=== PATIENT | male | born 1990 | race Caucasian/White ===

== ENCOUNTER → 2020-02-25 09:26 | Outpatient (CLI) | payer OTHER, SELFPAY ==
[2020-02-25 13:02] LABS: Absolute Lymphocyte Count 0.95 X10^3/uL (0.83-4.51); Absolute Neutrophil Count 2.3 X10^3/uL (2.0-7.7); Basophil# 0.02 X10^3/uL; Basophil% 0.5 % (0-1); Eosinophil# 0.11 X10^3/uL; Hematocrit 48.2 % (40-54); Hemoglobin 15.5 g/dL (13.0-16.5); Lymphocyte # 0.95 X10^3/ul (4.0); Lymphocyte % 26.1 % (19-41); Mean Corp Hgb Conc 32.2 g/dL (32-36); Mean Corpuscular Hgb 29.8 pg (27.0-32.0); Mean Corpuscular Volume 92.5 fL (80-94); Mean Platelet Vol. 10.1 fl (6.2-12.0); Monocyte# 0.28 X10^3/uL; Monocyte% 7.7 % (0-10); NRBC Flagged by Analyzer 0 % (0-5); Neutrophil # 2.27 X10^3/uL (2.7-7.7); Neutrophil % 62.4 % (47-70); Platelet Count 216 K/mm3 (150-450); RBC Distribution Width SD 41.1 fl (35.1-43.9); Red Blood Count 5.21 M/mm3 (4.6-6.2); White Blood Count 3.6 K/mm3 (4.4-11.0)
[2020-02-25 13:25] LABS: ALB/GLOB Ratio 1.2 RATIO (0.9-2.4); AST(SGOT) 17 U/L (15-37); Alanine Aminotransfer ALT/SGPT 33 U/L (16-61); Alkaline Phosphatase 45 U/L (45-117); Anion Gap 5 (5-15); BUN 12 mg/dL (7-18); BUN/Creat Ratio 15.1 RATIO (10-20); Chloride 105 mmol/L (98-107); Cholesterol 182 mg/dL (200); EST Glomerular Filtration Rate 123 mL/min (>60); Est Glom Filt Rate - Afr Amer 149 mL/min (>60); Globulin 3.4 g/dL (2.2-4.2); Glucose 88 mg/dL (74-106); High Density Lipoprotein 74 mg/dL; Potassium 4.2 mmol/L (3.5-5.1); Protein, Total 7.4 g/dL (6.4-8.2); Sodium Level 138 mmol/L (136-145); Triglycerides 70 mg/dL; Very Low Density Lipoprotein 14 mg/dL (5-40)
== END ==
PROVIDERS: PCP Family Medicine; Referring Provider Family Medicine; Visit Provider Family Medicine
DX: Z00.00 Encounter for general adult medical examination without abnormal findings (principal); Z82.49 Family history of ischemic heart disease and other diseases of the circulatory system
CPT/HCPCS: 36415; 80053; 80061; 85025

== ENCOUNTER → 2020-03-25 14:53 | Outpatient (CLI) | payer OTHER, SELFPAY ==
[2020-03-18 16:00] VITALS: BMI 29.2
--- NOTE | 2020-03-25 14:57 | ECHOD_ITS ---
Reason For Study: Arrhythmia Procedure This was a 2D Doppler, Color Flow transthoracic echocardiogram. Exam performed in department. Left Ventricle Normal LV size. Left ventricular systolic function is normal. The estimated ejection fraction is 60 %. Normal diastology for age. No regional wall motion abnormalities noted. Right Ventricle Normal RV size. Normal systolic function. Atria Normal left atrium. Normal right atrium. Mitral Valve Normal mitral valve. Tricuspid Valve Normal tricuspid valve. Mild (1+) tricuspid valve insufficiency. Pulmonary artery systolic pressure is 30 mmHg. Aortic Valve Normal aortic valve. Pulmonic Valve Normal pulmonic valve. Great Vessels Normal aortic root. The pulmonary artery is normal size. Normal inferior vena cava. Pericardium/Pleural No pericardial effusion. MMode/2D Measurements & Calculations LVIDd: 5.2 cm IVSd: 0.96 cm Ao root diam: 3.0 cm LVIDs: 3.5 cm LVPWd: 0.92 cm LA dimension: 3.4 cm FS: 33.2 % LAV(MOD-bp): 38.5 ml LA A4 area: 13.3 cm2 RA A4 area: 13.0 cm2 LAV(MOD-bp) Indexed: 18.9 ml/m2 LAV(MOD-sp2): 48.0 ml LAV(MOD-sp4): 29.2 ml Time Measurements MV dec time: 0.23 sec Doppler Measurements & Calculations MV E max isra: 99.3 cm/sec Lat Peak E' Isra: 20.2 cm/sec Med Peak E' Isra: 14.4 cm/sec MV A max isra: 58.9 cm/sec E/E' lat: 4.9 E/E' med: 6.9 MV E/A: 1.7 MV V2 max: 110.2 cm/sec MV P1/2t max isra: 110.2 cm/sec Ao V2 max: 125.5 cm/sec MV max P.9 mmHg MV P1/2t: 71.7 msec Ao max P.3 mmHg MV V2 mean: 51.3 cm/sec MV dec slope: 450.4 cm/sec2 MV mean P.4 mmHg MVA(P1/2t): 3.1 cm2 MV V2 VTI: 30.8 cm LV V1 max: 119.7 cm/sec PA V2 max: 114.6 cm/sec TR max isra: 257.7 cm/sec LV V1 max P.7 mmHg TR max P.6 mmHg Interpretation Summary Normal LV size. Left ventricular systolic function is normal. The estimated ejection fraction is 60 %. Normal diastology for age. Structurally normal valves. Ordering Physician: Andrew Merida Referring Physician: Jeyson Garcia Performed By: Arnel Harper RCS
== END ==
PROVIDERS: PCP Family Medicine; Referring Provider Internal Medicine Cardiovascular Disease; Visit Provider Internal Medicine Cardiovascular Disease
DX: I36.1 Nonrheumatic tricuspid (valve) insufficiency (principal)
CPT/HCPCS: 36415; 81291; 93306

== ENCOUNTER → 2020-04-11 11:14 | Outpatient (CLI) | payer OTHER, SELFPAY ==
[2020-03-18 16:00] VITALS: BMI 29.2
[2020-04-11 12:20] LABS: Homocysteine 5.7 umol/L (3.2-10.7)
[2020-04-24 12:07] LABS: Dilute Prothrombin Time (dPT) 47.8 sec (0.0-55.0); Dilute Russell Viper Venom 50.7 sec (0.0-47.0); PTT-LA 52.6 sec (0.0-51.9); PTT-LA Incub Mix 47.6 sec (0.0-48.9); Protein C Antigen 109 % (60-150); Protein C, Functional 105 % (73-180); Thrombin Time 22.7 sec (0.0-23.0); dPT Confirm Ratio 0.94 Ratio (0.00-1.40)
[2020-04-24 13:54] LABS: Antithrombin 3 Function 103 % (75-135); Protein S, Free 144 % (57-157); Protein S, Funtional 110 % (63-140); Protein S, Total 97 % (60-150)
== END ==
PROVIDERS: PCP Family Medicine; Referring Provider Internal Medicine Cardiovascular Disease; Visit Provider Internal Medicine Cardiovascular Disease
DX: E72.12 Methylenetetrahydrofolate reductase deficiency (principal); Z82.49 Family history of ischemic heart disease and other diseases of the circulatory system; Z83.2 Family history of diseases of the blood and blood-forming organs and certain disorders involving the immune mechanism
CPT/HCPCS: 36415; 81241; 83090; 85300; 85302; 85303; 85305; 85306